=== PATIENT | female | born 1965 | race African-American/Black ===

== ENCOUNTER 2024-04-08 15:18 | Emergency (ER) | payer OTHER, SELFPAY ==
[2024-04-08 15:25] VITALS: BP 190/104; PULSE 95; RESP 18; TEMP 36.9; O2SAT 95; BMI 47.3
--- NOTE | 2024-04-08 15:31 | XR_ITS ---
WS: [id number] Exam: XR foot RT min 3V* [id number] Date/Time of Exam: 04/08/2024 3:31 PM Reason For Exam: pain No fracture or dislocation. Mild degenerative changes in the IP and MP joints. No soft tissue foreign bodies. Calcaneal spurs. Spurring along the dorsal margin of the navicular. XR/XR foot RT min 3V* [id number] IMPRESSION: 1. Degenerative changes and calcaneal spurs. No fracture or other significant f inding.
--- NOTE | 2024-04-08 15:54 | W.ED.EXTPRO ---
HPI - Extremity Problem General: Chief complaint: Extremity Problem,Nontraumatic Stated complaint: Right foot pain Time Seen by Provider: 04/08/24 15:37 Source: patient Mode of arrival: ambulatory Limitations: no limitations History of Present Illness: 59-year-old female who states that she has had a heel spur in her right foot for quite some time causing chronic pain she does have follow-up with podiatry at [facility] on April 28 but states that the pain is worsened and she could not tolerate it today she has been taking ibuprofen denies any new injuries denies any fever Associated symptoms: Deny chest pain, fever(s) or rash Review of Systems Const: Denies: fever(s), chills, body aches or change in appetite ENMT: Denies: throat pain or dental pain Card: Denies: chest pain Resp: Denies: dyspnea GI: Denies: abdominal pain, nausea, vomiting or diarrhea Musc: Reports: extremity pain; Denies: neck pain or back pain Skin/Breast: Denies: rash Neuro: Denies: headache(s) Physical Exam Const: COMMON NORMALS: no acute distress, patient oriented x3 and healthy appearing HENMT: COMMON NORMALS: normocephalic and atraumatic HEAD & SCALP: normocephalic and atraumatic Eye: COMMON NORMALS: Equal, round and reactive pupils present and EOMs intact bilaterally PUPIL: Yes Equal, round and reactive pupils present Neck/C-Spine: COMMON NORMALS: full ROM and supple Chest: COMMONS NORMALS: normal inspection of the chest Resp: COMMON NORMALS: normal respiratory effort Extremity: NARRATIVE EXTREMITY EXAM: Tenderness to right calcaneus no warmth to touch no abnormalities Neuro: COMMON NORMALS: patient oriented x3, moves all extremities and no focal motor deficits Psych: COMMON NORMALS: mental status grossly normal, Normal thought process present and cooperative THOUGHT PROCESS: Normal thought process present Skin: COMMON NORMALS: no rashes or lesions noted and no wounds GENERAL SKIN EXAM: no rashes or lesions noted Course Vital Signs: Vital signs: Vital Signs Temperature 98.5 F 04/08/24 15:25 Pulse Rate 95 04/08/24 15:25 Respiratory Rate 18 04/08/24 15:25 Blood Pressure 190/104 04/08/24 15:25 Pulse Oximetry 95 04/08/24 15:25 Oxygen Delivery Me thod Room Air 04/08/24 15:25 MDM - Extremity (Nontraumatic) Medical Decision Making Patient presents here with right foot pain is chronic in nature likely from a heel spur we will prescribe her tramadol she is to follow-up as scheduled podiatry return if worsening she understands agrees to plan Medical Records I reviewed the patient's medical records. Lab Data Radiology Impressions Foot X-Ray 04/08/24 15:31 IMPRESSION: 1. Degenerative changes and calcaneal spurs. No fracture or other significant finding. All radiology interpretation(s) finalized by discharge Discharge Plan Discharge Patient Disposition: Home Clinical Impression: Right foot pain Condition: Stable Prescriptions: New tramadol 50 mg tablet 50 mg PO Q8H PRN (Reason: pain) Qty: 20 0RF Discharge Orders: Discharge ED (Routine); Ordered 04/08/24 Ordered By: Mahsa Barillas Discharge Diet: Advance as tolerated Discharge Activity: Resume usual activity Patient Instructions: Arthralgia (ED) Coding Level of Care Code ED [employer] Attendant for Celena Monsalve
[2024-04-08] MEDS: TRAMadol 50 mg Tablet PO (16:02)
[2024-04-08 16:05] VITALS: BP 168/96; PULSE 89; RESP 16; TEMP 36.9; O2SAT 97
== END 2024-04-08 16:02 | disposition home or self-care (01) ==
PROVIDERS: Emergency Provider Emergency Medicine
DX: M79.671 Pain in right foot (principal)
CPT/HCPCS: 73630; 99283